=== PATIENT | male | born 1945 ===

== ENCOUNTER 2022-06-22 08:30 | Inpatient (IN) | payer OTHER ==
[~2022-06-22] VITALS: Ht 167.6 cm; Wt 85.3 kg
[2022-06-22] MEDS ORDERED: GLUMETZA1000 MG PO (10:27)
[2022-06-22] MEDS ORDERED: GLIMEPIRIDE4 MG PO (10:27)
[2022-06-22] MEDS ORDERED: GRALISE600 MG PO (10:28)
[2022-06-22] MEDS ORDERED: SIMVASTA PO (10:28)
[2022-06-22] MEDS ORDERED: TERAZOSIN HCL10 MG PO (10:28)
[2022-06-25] MEDS ORDERED: BUMETANIDE1 MG (16:33)
[2022-06-25] MEDS ORDERED: ATORVASTATIN CA40 MG (16:33)
[2022-06-25] MEDS ORDERED: IRBESARTAN150 MG (16:33)
[2022-06-25] MEDS ORDERED: SYNJARDY 12.5-1 EACH (16:33)
[2022-06-25] MEDS ORDERED: TAMSULOSIN HCL0.4 MG (16:33)
[2022-06-26] MEDS ORDERED: NEURONTIN600 M1 PO (11:34)
== END 2022-06-26 12:44 | disposition home or self-care (01) | DRG 349 ==
LOC: SURG 06-25 08:30 → O/R 06-25 08:46 → SURG 06-25 12:45 → SURH 06-25 20:12
PROVIDERS: ADMIT Surgery; ATTEND Surgery
PROC: 0DBP7ZZ Excision of Rectum, Via Natural or Artificial Opening (ICD-10-PCS; 2022-06-25)
PROC: 0DBP7ZZ Excision of Rectum, Via Natural or Artificial Opening (ICD-10-PCS; principal; 2022-06-25 12:45)
DX: C20 Malignant neoplasm of rectum (principal); Z20.822 Contact with and (suspected) exposure to COVID-19